=== PATIENT | male | born 1945 | race Caucasian/White ===

== ENCOUNTER 2016-12-25 16:32 | Inpatient (IN) | payer MEDICARE ==
[~2016-12-25 16:32] MED LIST: ASPIRIN81 MG PO; CIPRO500 MG PO; COLACE100 MG PO; DOXYCYCLINE150 MG PO; HYDROCHLOROTHIA25 MG PO; LASIX40 MG PO; NICORETTE2 MG BC; NITROGLYCERIN0.4 MG SL; NORCO 5/3251 TAB PO; POTASSIUM CHLO10 MEQ PO; SYNTHROID125 MCG PO; VASOTEC20 MG PO; VERAPAMIL240 MG/TA1 PO; ZOCOR10 MG PO
[2016-12-25 17:10] LABS: BASO % 0.9 % (0-2); BASO ABSOLUTE COUNT 0.1 tho/cmm (0.0-0.2); EOS % 4.6 % (0-7); EOSINOPHIL ABSOLUTE COUNT 0.3 tho/cmm (0.0-0.7); HCT-HEMATOCRIT 38.2 % (36.0-53.5); HGB-HEMOGLOBIN 13.6 gm/dl (13.5-17.0); IMMATURE GRANULOCYTES ABSOLUTE 0.02 tho/cmm (0-0.03); IMMATURE GRANULOCYTES PERCENT 0.4 % (0-0.3); LYMPH % 48.3 % (20-45); LYMPH ABSOLUTE COUNT 2.7 tho/cmm (0.8-4.5); MCHC MEAN CORPUSCULAR HGB CONC 35.6 % (32.0-36.0); MEAN PLATELET VOLUME 10.6 cmc (9.4-12.4); MONO % 15.9 % (0-12); MONOCYTE ABSOLUTE COUNT 0.9 tho/cmm (0.0-1.2); NEUTROPHIL ABSOLUTE COUNT 1.7 tho/cmm (1.6-8.0); NEUTROPHIL-AUTOMATED 1.7 tho/cmm (1.6-8.0); NEUTROPHILS % 29.9 % (40-80); PLATELET COUNT 135 tho/cmm (150-450); RED BLOOD COUNT 3.38 mil/cmm (4.40-5.70); RED CELL DISTRIBUTION WIDTH 15.3 % (12.4-16.4); WHITE BLOOD COUNT 5.7 tho/cmm (4.0-10.0)
[2016-12-25 17:15] LABS: MCH (MEAN CORPUSCULAR HGB) 40.2 pg (28.0-32.0)
[2016-12-25 17:39] LABS: ANION GAP 12 mmol/L (0-20); BLOOD UREA NITROGEN 14 mg/dl (6-24); CALCIUM 8.4 mg/dl (8.5-10.5); CARBON DIOXIDE-VENOUS 33 mmol/L (22-32); CHLORIDE 103 mmol/l (96-110); CREATININE 0.77 mg/dl (0.60-1.30); GLUCOSE 77 mg/dL (70-110); SODIUM 144 mmol/L (135-145); eGFR VALUE FOR BLACK >90 mL/Min
[2016-12-25] MEDS ORDERED: COREG12.5 M1 PO (17:53)
[2016-12-25] MEDS ORDERED: FUROSEMIDE40 M2 PO (17:53)
[2016-12-25] MEDS ORDERED: ACETAMINOPHEN1 EAC4 PO (17:53)
[2016-12-25] MEDS ORDERED: POTASSIUM CHLO20 ME3 PO (17:54)
[2016-12-25] MEDS ORDERED: ZESTRIL40 M2 PO (17:55)
[2016-12-25] MEDS ORDERED: TIROSINT137 MCG PO (17:55)
[2016-12-26 05:44] LABS: BASO % 1.1 % (0-2); BASO ABSOLUTE COUNT 0.1 tho/cmm (0.0-0.2); EOS % 4.7 % (0-7); EOSINOPHIL ABSOLUTE COUNT 0.3 tho/cmm (0.0-0.7); HCT-HEMATOCRIT 38.2 % (36.0-53.5); HGB-HEMOGLOBIN 13.2 gm/dl (13.5-17.0); IMMATURE GRANULOCYTES ABSOLUTE 0.01 tho/cmm (0-0.03); IMMATURE GRANULOCYTES PERCENT 0.2 % (0-0.3); LYMPH % 39.6 % (20-45); LYMPH ABSOLUTE COUNT 2.2 tho/cmm (0.8-4.5); MCH (MEAN CORPUSCULAR HGB) 39.4 pg (28.0-32.0); MCHC MEAN CORPUSCULAR HGB CONC 34.6 % (32.0-36.0); MEAN PLATELET VOLUME 10.9 cmc (9.4-12.4); NEUTROPHIL ABSOLUTE COUNT 2.1 tho/cmm (1.6-8.0); NEUTROPHIL-AUTOMATED 2.1 tho/cmm (1.6-8.0); NEUTROPHILS % 37.4 % (40-80); PLATELET COUNT 143 tho/cmm (150-450); RED BLOOD COUNT 3.35 mil/cmm (4.40-5.70); RED CELL DISTRIBUTION WIDTH 15.5 % (12.4-16.4); WHITE BLOOD COUNT 5.6 tho/cmm (4.0-10.0)
[2016-12-26 05:59] LABS: ALB/GLOB RATIO 0.5 (0.8-2.0); ALBUMIN 2.8 g/dl (3.5-5.0); ALKALINE PHOSPHATASE 122 U/L (33-138); ALT/SGPT 20 U/L (12-78); ANION GAP 9 mmol/L (0-20); AST/SGOT 26 U/L (10-40); BILIRUBIN,TOTAL 0.9 mg/dl (0.0-1.5); BLOOD UREA NITROGEN 14 mg/dl (6-24); CALCIUM 8.2 mg/dl (8.5-10.5); CARBON DIOXIDE-VENOUS 36 mmol/L (22-32); CHLORIDE 102 mmol/l (96-110); CREATININE 0.85 mg/dl (0.60-1.30); GLUCOSE 85 mg/dL (70-110); MAGNESIUM 2.1 mg/dl (1.8-2.6); POTASSIUM 4.4 mmol/L (3.7-5.1); SODIUM 143 mmol/L (135-145); eGFR VALUE FOR BLACK >90 mL/Min
[2016-12-27 05:25] LABS: INR 1.2 INR (0.9-1.1); PROTHROMBIN TIME 14.1 SECONDS (9.0-13.6)
[2016-12-27 05:39] LABS: ANION GAP 9 mmol/L (0-20); BLOOD UREA NITROGEN 20 mg/dl (6-24); CALCIUM 8.2 mg/dl (8.5-10.5); CARBON DIOXIDE-VENOUS 37 mmol/L (22-32); CHLORIDE 97 mmol/l (96-110); CREATININE 0.89 mg/dl (0.60-1.30); GLUCOSE 94 mg/dL (70-110); MAGNESIUM 2.3 mg/dl (1.8-2.6); POTASSIUM 3.8 mmol/L (3.7-5.1); SODIUM 139 mmol/L (135-145); eGFR VALUE FOR BLACK >90 mL/Min
[2016-12-28 06:27] LABS: PLATELET COUNT 154 tho/cmm (150-450)
[2016-12-28 06:38] LABS: ANION GAP 9 mmol/L (0-20); BLOOD UREA NITROGEN 21 mg/dl (6-24); CALCIUM 8.1 mg/dl (8.5-10.5); CARBON DIOXIDE-VENOUS 38 mmol/L (22-32); CHLORIDE 98 mmol/l (96-110); CREATININE 0.86 mg/dl (0.60-1.30); GLUCOSE 107 mg/dL (70-110); POTASSIUM 3.6 mmol/L (3.7-5.1); SODIUM 141 mmol/L (135-145); eGFR VALUE FOR BLACK >90 mL/Min
[2016-12-29 05:49] LABS: ANION GAP 8 mmol/L (0-20); BLOOD UREA NITROGEN 21 mg/dl (6-24); CALCIUM 8.4 mg/dl (8.5-10.5); CARBON DIOXIDE-VENOUS 37 mmol/L (22-32); CHLORIDE 97 mmol/l (96-110); CREATININE 0.89 mg/dl (0.60-1.30); SODIUM 138 mmol/L (135-145); eGFR VALUE FOR BLACK >90 mL/Min
[2016-12-29 06:00] LABS: GLUCOSE 171 mg/dL (70-110)
[2016-12-29 16:54] LABS: ABG CO2 ARTERIAL 38 mmol/L (21-27); ARTERIAL BLD GAS O2 SATURATION 94 % (95-98); ARTERIAL BLOOD GAS PCO2 62 mmHg (32-45); ARTERIAL PO2 66 mmHg (70-100); BICARBONATE 36 mmol/L (21-28); BLOOD GAS BASE EXCESS 9 mM/L (-/+3); PH 7.39 Units (7.35-7.45)
[2016-12-29 18:06] LABS: PROCALCITONIN 0.06 ng/ml (0.05-0.09)
[2016-12-30 05:29] LABS: HGB-HEMOGLOBIN 12.9 gm/dl (13.5-17.0); PLATELET COUNT 165 tho/cmm (150-450)
[2016-12-30 05:33] LABS: ANION GAP 6 mmol/L (0-20); BLOOD UREA NITROGEN 29 mg/dl (6-24); CALCIUM 8.4 mg/dl (8.5-10.5); CARBON DIOXIDE-VENOUS 38 mmol/L (22-32); CHLORIDE 99 mmol/l (96-110); CREATININE 0.91 mg/dl (0.60-1.30); GLUCOSE 129 mg/dL (70-110); SODIUM 139 mmol/L (135-145); eGFR VALUE FOR BLACK >90 mL/Min
[2016-12-30] MEDS ORDERED: ZITHROMAX250 M1 PO (13:46)
[2016-12-30] MEDS ORDERED: CLARITIN10 M6 PO (13:46)
[2016-12-30] MEDS ORDERED: PRINIVIL10 M1 PO (13:47)
[2016-12-30] MEDS ORDERED: SYNTHROID175 MC1 PO (13:54)
[2016-12-30] MEDS ORDERED: DELTASONE20 MG PO (13:57)
[2016-12-30] MEDS ORDERED: ANORO ELLIPTA1 EAC1 INH (13:59)
[2016-12-30] MEDS ORDERED: VENTOLIN HFA18 G2 PO (14:03)
[2017-02-22] MEDS ORDERED: AUGMENTIN 875-1 EAC2 PO (08:41)
[2017-02-22] MEDS ORDERED: DEMADEX20 M1 PO (08:45)
[2017-02-22] MEDS ORDERED: MUCINEX600 M1 PO (08:53)
== END 2016-12-30 18:10 | disposition home health service (06) | DRG 291 ==
LOC: EDMED 16:32 → EMR2 20:16 → PCUA 12-26 08:18
PROVIDERS: Emergency Medicine; Internal Medicine Pulmonary Disease; ADMIT Internal Medicine
DX: I11.0 Hypertensive heart disease with heart failure (principal); J96.01 Acute respiratory failure with hypoxia; J44.1 Chronic obstructive pulmonary disease with (acute) exacerbation; J44.0 Chronic obstructive pulmonary disease with (acute) lower respiratory infection; I50.33 Acute on chronic diastolic (congestive) heart failure; Z95.2 Presence of prosthetic heart valve; E78.5 Hyperlipidemia, unspecified; Z87.11 Personal history of peptic ulcer disease; E03.9 Hypothyroidism, unspecified; Z79.02 Long term (current) use of antithrombotics/antiplatelets; Z87.891 Personal history of nicotine dependence; R00.1 Bradycardia, unspecified; B34.8 Other viral infections of unspecified site; I34.0 Nonrheumatic mitral (valve) insufficiency; J20.9 Acute bronchitis, unspecified; E87.6 Hypokalemia; G47.33 Obstructive sleep apnea (adult) (pediatric)
CPT/HCPCS: C8929; J0456; J0696; J1650; J1940; J2930; J7050; J7512; Q9967